=== PATIENT | male | born 1955 | race Hispanic/Latino ===

== ENCOUNTER 2021-10-20 17:44 | Emergency (ER) | payer SELFPAY ==
[2021-10-20 18:39] LABS: Absolute Lymphocytes (CBC) 1.6 K/uL (0.7-4.9); Basophils % 0.6 % (0-1.3); Hematocrit 39.1 % (39.6-49.0); Lymphocytes % 20.3 % (15.3-44.8); MPV 8.7 fL (7.6-11.3); RBC Red Blood Cell Count 4.56 M/uL (4.33-5.43)
[2021-10-20 18:47] LABS: ALT/SGPT 27 U/L (12-78); AST/SGOT 18 U/L (15-37); Albumin 2.6 g/dL (3.4-5.0); Alkaline Phosphatase 135 U/L (45-117); BUN Blood Urea Nitrogen 11 mg/dL (7-18); Bicarbonate 29 mmol/L (21-32); Bilirubin Direct < 0.1 mg/dL (0-0.2); Bilirubin Total 0.2 mg/dL (0.2-1.0); Glucose Level 170 mg/dL (74-106); Lipase 109 U/L (73-393); Potassium 3.9 mmol/L (3.5-5.1); Protein, Total 7.4 g/dL (6.4-8.2); Sodium Level 139 mmol/L (136-145)
[2021-10-20 19:08] LABS: Urine Blood 1+ (Negative); Urine Glucose Negative (Negative); Urine Protein Negative (Negative); Urine Specific Gravity 1.025 (1.005-1.030); Urine pH 6.5 (5.0-7.0)
--- NOTE | 2021-10-20 21:09 | RAD REPORT ---
EXAM DESCRIPTION: CT - Abdomen Pelvis Wo Contrast - 10/20/2021 8:45 pm CLINICAL HISTORY: Abdominal pain. r/o stone;Abd pain COMPARISON: No comparisons TECHNIQUE: CT imaging of the abdomen and pelvis was performed without contrast. Solid organ, bowel a nd vascular assessment is limited due to lack of IV and oral contrast. All CT scans are performed using dose optimization technique as appropriate and may include automated exposure control or mA/KV adjustment according to patient size. FINDINGS: The lower lung peraza are clear. The liver contains a 3 cm cyst. No intra or extrahepatic biliary tree dilatation.The spleen, adrenal glands and kidneys within limits. No bowel obstruction, free air, free fluid or abscess. Moderate stool is present in the colon and sma ll bowel. The appendix is not identified as a discrete structure, however, no secondary findings of a ppendicitis are identified. Circumferential soft tissue is seen surrounding the inferior abdominal aorta measuring up to 10 mm ma ximum thickness. The osseous structures are within normal limits. IMPRESSION: Circumferential soft tissue is seen surrounding the distal abdominal aorta, a nonspecifi c finding but may indicate junior-aortitis or retroperitoneal fibrosis. A limited non-contrast examination was performed as detailed.
[2021-10-20] MEDS ORDERED: KETOROLAC 30 MG/ML INJ ONE (21:14)
--- NOTE | 2021-10-20 23:32 | ER ---
Nurse's Notes [facility] Name: Vinny Lee Age: 66 yrs Sex: Male : 1955 Arrival Date: 10/20/2021 Time: 17:50 Bed 18 Private MD: Diagnosis: Retroperitoneal Fibrosis/Aortitis Presentation: 10/20 18:09 Chief complaint: Patient states: Lower back pain and lower abdominal pain X 1 month, ld1 intermittent pain. Denies n/v/d. No prior history of abdominal pain. Coronavirus screen: At this time, the client does not indicate any symptoms associated with coronavirus-19. Ebola Screen: No symptoms or risks identified at this time. Initial Sepsis Screen: Does the patient meet any 2 criteria? No. Patient's initial sepsis screen is negative. Does the patient have a suspected source of infection? No. Patient's initial sepsis screen is negative. Risk Assessment: Do you want to hurt yourself or someone else? Patient reports no desire to harm self or others. Onset of symptoms was October 20, 2021. 18:09 Method Of Arrival: Ambulatory ld1 18:09 Acuity: REJI 3 ld1 Triage Assessment: 18:12 General: Appears in no apparent distress. comfortable, Behavior is calm, cooperative, ld1 appropriate for age. Pain: Complains of pain in low back area, left low back, right low back, right lower quadrant and left lower quadrant Pain does not radiate. Pain currently is 9 out of 10 on a pain scale. Quality of pain is described as stabbing, Pain began gradually, Is intermittent. EENT: No signs and/or symptoms were reported regarding the EENT system. Neuro: Level of Consciousness is awake, alert, obeys commands, Oriented to person, place, time, situation, Appropriate for age. Cardiovascular: Capillary refill < 3 seconds Patient's skin is warm and dry. Respiratory: Airway is patent Respiratory effort is even, unlabored, Respiratory pattern is regular, symmetrical. GI: Abdomen is round non-distended, Reports lower abdominal pain. : No signs and/or symptoms were reported regarding the genitourinary system. Derm: No signs and/or symptoms reported regarding the dermatologic system. Musculoskeletal: No signs and/or symptoms reported regarding the musculoskeletal system. Historical: - Allergies: 18:12 No Known Allergies; ld1 - Home Meds: 18:12 None [Active]; ld1 - PMHx: 18:12 None; ld1 - PSHx: 18:12 None; ld1 - Immunization history:: Adult Immunizations up to date, Client reports receiving the 2nd dose of the Covid vaccine. - Social history:: Smoking status: Patient denies any tobacco usage or history of. Patient/guardian denies using alcohol. Screenin:46 Abuse screen: Denies threats or abuse. Denies injuries from another. Nutritional ld1 screening: No deficits noted. Tuberculosis screening: No symptoms or risk factors identified. Fall Risk None identified. Assessment: 21:14 General: Appears in no apparent distress. comfortable, Behavior is calm, cooperative. cc4 Pain: Complains of pain in abdomen and left lower quadrant and right lower quadrant and right low back Pain radiates to abdomen into back Pain currently is 5 out of 10 on a pain scale. Quality of pain is described as aching, Pain began 1 month ago with pain reported to "come and go". Neuro: No deficits noted. Level of Consciousness is awake, alert, obeys commands, Oriented to person, place, time, situation. Cardiovascular: No deficits noted. Heart tones S1 S2. Respiratory: No deficits noted. Airway is patent Respiratory effort is even, unlabored, Respiratory pattern is regular, symmetrical. GI: Abdomen is flat, non-distended, Bowel sounds present X 4 quads. Abd is soft and non tender X 4 quads. : No signs and/or symptoms were reported regarding the genitourinary system. EENT: No signs and/or symptoms were reported regarding the EENT system. Derm: No deficits noted. Skin is intact, is healthy with good turgor, # 20 g saline lock intact right inner FA with no s/sx's of infection/infiltration noted of site. Musculoskeletal: No deficits noted. Range of motion: intact in all extremities, Toradol 15 mg given slow IVP as ordered. 23:46 GI: Bowel sounds present X 4 quads. Abd is soft and non tender X 4 quads. ld1 Vital Signs: 18:09 BP 164 / 68; Pulse 79; Resp 19; Temp 98.5(O); Pulse Ox 98% on R/A; Weight 77.11 kg; ld1 Height 5 ft. 10 in. (177.80 cm); Pain 9/10; 21:14 BP 135 / 63; Pulse 70; Resp 18 S; Temp 98.5(O); Pulse Ox 98% on R/A; cc4 22:32 BP 150 / 63; Pulse 72; Resp 18; Pulse Ox 98% on R/A; ld1 18:09 Body Mass Index 24.39 (77.11 kg, 177.80 cm) ld1 ED Course: 17:50 Patient arrived in ED. mr 18:12 Triage completed. ld1 18:12 Arm band placed on left wrist. ld1 18:18 Inserted saline lock: 20 gauge in right antecubital area, using aseptic technique. ld1 Blood collected. 19:15 Mile Reynaga, RN is Primary Nurse. sl2 19:15 Basic Metabolic Panel Sent. sl2 19:16 Manny Ken PA is PHCP. jr8 19:16 Norbert Ames MD is Attending Physician. jr8 20:45 CT Abd/Pelvis - Without Contrast In Process Unspecified. EDMS 22:24 CT Chest, Abdomen, Pelvis - W/Contrast In Process Unspecified. EDMS 23:46 No provider procedures requiring assistance completed. IV discontinued, intact, ld1 bleeding controlled, No redness/swelling at site. 23:47 Patient has correct armband on for positive identification. Placed in gown. Bed in low ld1 position. Call light in reach. Side rails up X2. Administered Medications: 21:14 Drug: Ketorolac 15 mg Route: IVP; Site: right forearm; cc4 22:00 Follow up: Response: No adverse reaction; Pain is decreased cc4 Outcome: 23:31 Discharge ordered by . jr8 23:47 Discharged to home ambulatory. ld1 23:47 Condition: stable 23:47 Discharge instructions given to patient, Instructed on discharge instructions, follow up and referral plans. medication usage, Demonstrated understanding of instructions, follow-up care, medications. 23:48 Patient left the ED. ld1 Signatures: Dispatcher [employer] EDTX Ashley Nicole mr Manny Ken PA PA jr8 Nina Johnston RN RN ld1 Alisha Lane RN RN cc4 Mile Reynaga, JOSE LUIS RN sl2
--- NOTE | 2021-10-20 23:32 | EDPHYS ---
Physician Documentation [facility] Name: Vinny Lee Age: 66 yrs Sex: Male : 1955 Arrival Date: 10/20/2021 Time: 17:50 Bed 18 Private MD: ED Physician Norbert Ames HPI: 10/20 21:31 This 66 yrs old Male presents to ER via Ambulatory with complaints of jr8 Abdominal Pain. 21:31 This is a 66-year-old male patient that presented to the emergency room with complaints jr8 of insidious and intermittent abdominal pain in the lower abdomen that often radiates to the left flank. Stated is been going on for approximately 1 month. Has become more severe tonight so called a friend to come to bring him to the emergency room for further evaluation. Denies any nausea, vomiting, diarrhea, fevers. Denies any urinary complaints at this time.. Historical: - Allergies: 18:12 No Known Allergies; ld1 - Home Meds: 18:12 None [Active]; ld1 - PMHx: 18:12 None; ld1 - PSHx: 18:12 None; ld1 - Immunization history:: Adult Immunizations up to date, Client reports receiving the 2nd dose of the Covid vaccine. - Social history:: Smoking status: Patient denies any tobacco usage or history of. Patient/guardian denies using alcohol. ROS: 21:31 Eyes: Negative for injury, pain, redness, and discharge, ENT: Negative for injury, jr8 pain, and discharge, Neck: Negative for injury, pain, and swelling, Cardiovascular: Negative for chest pain, palpitations, and edema, Respiratory: Negative for shortness of breath, cough, wheezing, and pleuritic chest pain, MS/Extremity: Negative for injury and deformity, Skin: Negative for injury, rash, and discoloration, Neuro: Negative for headache, weakness, numbness, tingling, and seizure. 21:31 Abdomen/GI: Positive for abdominal pain, Negative for nausea, vomiting, and diarrhea, hematemesis, black/tarry stool, rectal pain, rectal bleeding, bowel incontinence, flatulence. 21:31 Back: Positive for flank pain, on the left. Exam: 21:31 Constitutional: This is a well developed, well nourished patient who is awake, alert, jr8 and in no acute distress. Cardiovascular: Regular rate and rhythm with a normal S1 and S2. No gallops, murmurs, or rubs. Normal PMI, no JVD. No pulse deficits. Respiratory: Lungs have equal breath sounds bilaterally, clear to auscultation and percussion. No rales, rhonchi or wheezes noted. No increased work of breathing, no retractions or nasal flaring. Back: No spinal tenderness. No costovertebral tenderness. Full range of motion. Skin: Warm, dry with normal turgor. Normal color with no rashes, no lesions, and no evidence of cellulitis. MS/ Extremity: Pulses equal, no cyanosis. Neurovascular intact. Full, normal range of motion. Neuro: Awake and alert, GCS 15, oriented to person, place, time, and situation. Cranial nerves II-XII grossly intact. Motor strength 5/5 in all extremities. Sensory grossly intact. 21:31 Abdomen/GI: Inspection: abdomen appears normal, Bowel sounds: active, all quadrants, Palpation: soft, in all quadrants, mild abdominal tenderness, in the suprapubic area and left lower quadrant, mass, is not appreciated, rebound tenderness, is not appreciated, voluntary guarding, is not appreciated, involuntary guarding, is not appreciated, no appreciated organomegaly, Indicators: McBurney's point is not tender, Ayers's sign is negative, Rovsing's sign is negative, Liver: tenderness, is not appreciated. Vital Signs: 18:09 BP 164 / 68; Pulse 79; Resp 19; Temp 98.5(O); Pulse Ox 98% on R/A; Weight 77.11 kg; ld1 Height 5 ft. 10 in. (177.80 cm); Pain 9/10; 21:14 BP 135 / 63; Pulse 70; Resp 18 S; Temp 98.5(O); Pulse Ox 98% on R/A; cc4 22:32 BP 150 / 63; Pulse 72; Resp 18; Pulse Ox 98% on R/A; ld1 18:09 Body Mass Index 24.39 (77.11 kg, 177.80 cm) ld1 MDM: 19:17 Patient medically screened. jr8 23:29 Data reviewed: vital signs, nurses notes, lab test result(s), radiologic studies, CT jr8 scan. Data interpreted: Pulse oximetry: on room air is 98 %. Interpretation: normal. Counseling: I had a detailed discussion with the patient and/or guardian regarding: the historical points, exam findings, and any diagnostic results supporting the discharge/admit diagnosis, lab results, radiology results, the need for outpatient follow up, a supervisor refractory products, to return to the emergency department if symptoms worsen or persist or if there are any questions or concerns that arise at home. ED course: Based on patient's symptoms and what we see on the CT scan it is possible that patient has a retroperitoneal fibrosis/aortitis. Recommended follow-up with rheumatology for further work-up for definitive diagnosis. In the meantime we will trial him on steroids.. 10/20 18:16 Order name: Basic Metabolic Panel ld1 10/20 18:16 Order name: CBC with Diff; Complete Time: 20:24 ld1 10/20 18:16 Order name: Hepatic Function; Complete Time: 20:24 ld1 10/20 18:16 Order name: Lipase; Complete Time: 20:24 ld1 10/20 18:19 Order name: Basic Metabolic Panel; Complete Time: 20:24 EDMS 10/20 19:08 Order name: Urine Dipstick-Ancillary; Complete Time: 20:24 EDMS 10/20 18:16 Order name: IV Saline Lock; Complete Time: 18:17 ld1 10/20 18:16 Order name: Labs collected and sent; Complete Time: 18:17 ld1 10/20 18:16 Order name: Urine Dipstick-Ancillary (obtain specimen); Complete Time: 19:15 ld1 10/20 20:28 Order name: CT Abd/Pelvis - Without Contrast; Complete Time: 21:19 jr8 10/20 21:29 Order name: CT Chest, Abdomen, Pelvis - W/Contrast jr8 Administered Medications: 21:14 Drug: Ketorolac 15 mg Route: IVP; Site: right forearm; cc4 22:00 Follow up: Response: No adverse reaction; Pain is decreased cc4 Disposition Summary: 10/20/21 23:31 Discharge Ordered Location: Home jr8 Problem: new jr8 Symptoms: have improved jr8 Condition: Stable jr8 Diagnosis - Retroperitoneal Fibrosis/Aortitis jr8 Followup: jr8 - With: Private Physician - When: 2 - 3 days - Reason: Recheck today's complaints, Continuance of care, Re-evaluation by your physician Discharge Instructions: - Discharge Summary Sheet jr8 Forms: - Medication Reconciliation Form jr8 - Thank You Letter jr8 - Antibiotic Education jr8 - Prescription Opioid Use jr8 Prescriptions: - Prednisone 20 mg Oral Tablet - take 3 tablets by ORAL route once daily for 7 days; 21 tablet; Refills: 0, jr8 Product Selection Permitted Addendum: 10/25/2021 19:05 Co-signature as Attending Physician, Norbert Ames MD I agree with the assessment and r n plan of care. Attestation: The patient's history, exam findings, diagnostics, and a summary of any interventions or procedures was reviewed in detail with Manny MARTIN. Signatures: Dispatcher [employer] EDMS Norbert Ames MD MD rn Roszak, Josh, PA PA jr8 Nina Johnston RN RN ld1 Alisha Lane RN RN cc4 Mile Reynaga RN RN sl2
[2021-10-20 23:53] VITALS: TEMP 98.5; O2SAT 98
[2021-10-20 23:54] VITALS: BP 150/63
--- NOTE | 2021-10-21 13:44 | RAD REPORT ---
EXAM DESCRIPTION: CT - Chest Abdomen Pelvis W Cont - 10/21/2021 6:46 am CLINICAL HISTORY: 66 years, Male, clinical concern for RPF COMPARISON: 10/20/2021 performed earlier TECHNIQUE: Contrast-enhanced images of the chest, abdomen and pelvis were performed utilizing 5 mm s lice thickness at 5 mm interval reconstruction from the lung apices to the ischial tuberosities after the administration IV contrast. In addition multiplanar reformats in the coronal and sagittal plane were obtained and reviewed. This exam was performed according to our departmental dose-optimization protocol, which includes auto mated exposure control, adjustment of the mA and/or kV according to patient size and/or use of iterat kristine reconstruction technique. FINDINGS: Chest: The lung demonstrate to be clear. No significant pulmonary nodules masses and/or co nsolidations identified. There is no evidence for pneumothorax. The trachea mainstem bronchus demonstrate to unremarkable. There is no pleural/or pericardial effusio ns. The thoracic aorta demonstrate very minimal intimal calcification at the descending portion proximal aspect. No evidence for significant aneurysm/or dissection there is normal branching pattern of the g reat vessels. The heart is not enlarged. There is normal position of the central pulmonary arteries with no signifi cant major filling defects. There is no significant mediastinal or and/or hilar lymphadenopathy. The axillary regions demonstrate to be clear. The bone windows demonstrate minimal interspinous spondylosis. The liver demonstrate dome of the liver left hepatic lobe cyst measuring 3.3 x 2.3 cm on image 47. Ot herwise the liver, gallbladder, pancreas, spleen and adrenal glands demonstrate to be unremarkable, n o focal lesions are noted. The kidneys demonstrate normal uptake of contrast media. No evidence for nephrolithiasis and/or hydro nephrosis. The ureters demonstrate normal appearance with no significant major medial/central deviati on. Grossly the unopacified stomach, small bowel and large bowel demonstrate to be within normal limits. There is no evidence for bowel dilatation/or free air. The appendix is normal. Fecal residue with in the large bowel suggest mild fecal stasis The urinary bladder demonstrate to be unremarkable. The prostate gland is slightly prominent. The aorta demonstrate atherosclerotic disease. As was described in previous study there is circumferenti al soft tissue density along the infrarenal portion of the abdominal aorta within the region of the t akeoff of the inferior mesenteric artery and inferiorly measuring 10 mm in thickness on CT series #37 /89 with minimal enhancement findings could correspond to infection, inflammation/or minimal fibrosis . There is no retroperitoneal lymphadenopathy. There is no evidence for ascites or and/or significa nt abnormal fluid collections. The rest of the soft tissue and bony structures are within normal limi ts. IMPRESSION: Circumferential soft tissue density along the infrarenal portion of the abdominal aorta with 10 mm in thickness and minimal enhancement findings could correspond to periaortitis and/or retr operitoneal fibrosis. Mild fecal stasis. Hepatic cyst. Electronically signed by: Max Clark MD 10/20/2021 11:00 PM LEARNING PROGRAM MANAGER Due to temporary technical issues with the PACS/Fluency reporting system, reports are being signed by the in house radiologists without review as a courtesy to insure prompt reporting. The interpreting radiologist is fully responsible for the content of the report.
== END 2021-10-20 23:48 | disposition home or self-care (01) ==
LOC: ER 17:44
DX: N13.5 Crossing vessel and stricture of ureter without hydronephrosis (principal)
CPT/HCPCS: 36415; 71260; 74176; 74177; 80048; 80076; 81003; 83690; 85025; 96374; 99284; Q9967